=== PATIENT | male | born 1960 | race Caucasian/White ===

== ENCOUNTER 2021-06-13 10:48 | Inpatient (IN) | payer BC ==
[~2021-06-13] VITALS: Ht 182.9 cm; Wt 126.8 kg
[2021-06-13 11:15] LABS: HEMATOCRIT 46.2 % (42.0-52.0); HEMOGLOBIN 15.1 gm/dL (14.0-18.0); MCH 30.7 pg (26.0-34.0); MCHC 32.6 g/dL (28.0-37.0); MCV 94.1 fL (80.0-100.0); MPV 8.6 fl. (7.2-11.1); NUCLEATED RBCS 0 /100WBC; PLATELET COUNT* 207 thou/uL (150-400); RBC 4.91 mil/uL (4.50-6.00); RDW-CV 14.3 % (10.5-14.5); WBC 11.2 thou/uL (4.0-11.0)
[2021-06-13 11:17] VITALS: BP 108/87
[2021-06-13 11:24] LABS: CALCIUM 8.2 mg/dL (8.5-10.1); CREATININE 1.4 mg/dL (0.6-1.3)
[2021-06-13 11:28] LABS: POTASSIUM 5.5 mmol/L (3.5-5.1)
[2021-06-13] MEDS ORDERED: PLAVIX 75 MG TA75 MG PO (11:30)
[2021-06-13 11:35] LABS: ALBUMIN 4.2 g/dL (3.4-5.0); TOTAL BILIRUBIN 0.3 mg/dL (<0.1-1.0); TOTAL PROTEIN 8.2 g/dL (6.4-8.2)
[2021-06-13 11:42] LABS: ABSOLUTE MONOCYTES 0.4 thou/uL (0.0-1.2); ABSOLUTE NEUTROPHILS 9.7 thou/uL (1.6-8.1); PLATELET ESTIMATE ADEQUATE
[2021-06-13] MEDS ORDERED: LOPRESSOR50 MG PO (11:44)
[2021-06-13 11:45] LABS: ALCOHOL < 10 mg/dL (<10); SALICYLATE 4.6 mg/dL (2.8-20.0)
[2021-06-13] MEDS ORDERED: NORCO 10-325 T1 EACH PO (11:45)
[2021-06-13] MEDS ORDERED: ASPIRIN325 PO (11:45)
[2021-06-13] MEDS ORDERED: SOMA350 MG PO (11:46)
[2021-06-13] MEDS ORDERED: AMITRIPTYLINE150 MG PO (11:46)
[2021-06-13] MEDS ORDERED: SONATA5 M1 PO (11:46)
[2021-06-13] MEDS ORDERED: MELATONIN3 M1 PO (11:47)
[2021-06-13] MEDS ORDERED: NEURONTIN 300M300 M2 PO (11:47)
[2021-06-13] MEDS ORDERED: MICARDIS HCT 41 EACH PO (11:47)
[2021-06-13 11:49] LABS: ACETAMINOPHEN < 2 ug/mL (10-30)
[2021-06-13 12:51] LABS: URINE BILIRUBIN NEGATIVE (Negative); URINE BLOOD NEGATIVE (Negative); URINE CLARITY CLEAR; URINE COLOR YELLOW; URINE GLUCOSE-RANDOM TRACE (Negative); URINE KETONES NEGATIVE (Negative); URINE LEUKOCYTES-REFLEX NEGATIVE (Negative); URINE NITRITE-REFLEX NEGATIVE (Negative); URINE PROTEIN NEGATIVE (Negative); URINE SPECIFIC GRAVITY >= 1.030 (1.005-1.030); URINE UROBILINOGEN 0.2 E.U./dl (0.2-1.0)
[2021-06-13 12:59] LABS: AMP/METHAMP Negative (Negative); BARBITURATES Negative (Negative); BENZODIAZEPINES Negative (Negative); COCAINE Negative (Negative); METHADONE POSITIVE (Negative); OPIATES POSITIVE (Negative); PCP Negative (Negative); THC POSITIVE (Negative)
[2021-06-13 17:00] VITALS: BP 108/84
[2021-06-13 17:09] LABS: PO2 77.2 mmHg (75.0-100.0)
[2021-06-13 17:11] LABS: pH 7.205 (7.340-7.450)
[2021-06-13 17:12] LABS: PCO2 65.8 mmHg (35.0-45.0)
--- NOTE | 2021-06-13 17:40 | 2DMMODE ---
[place] [address] 2 D/M-MODE ECHOCARDIOGRAM Name: BETTY ORTIZ Room: [place] [address] ADM IN .R.#: [id number] Admission: 06/13/21 Attend Phys: Hanane Perry, Discharge: Date of : 62 Date of Service: 06/13/21 1739 Report #: [id number] THIS REPORT FOR: cc: Physician not on staff Physician not on staff Roshan aSnchez MD [facility] ~ APPROVED REPORT Study performed: 06/13/2021 15:29:16 EXAM: Comprehensive 2D, Doppler, and color-flow Echocardiogram Patient Location: In-Patient Room #: er Status: routine BSA: 2.46 HR: 82 bpm BP: 113/78 mmHg Rhythm: NSR Other Information Study Quality: Good Indications elevated bnp 2D Dimensions IVSd: 17.21 (7-11mm) LVOT Diam: 22.76 (18-24mm) LVDd: 53.62 mm PWd: 13.05 (7-11mm) Ascending Ao: 40.79 (22-36mm) LVDs: 33.00 (25-40mm) Aortic Root: 38.37 mm Volumes Left Atrial Volume (Systole) LA ESV Index: 16.70 mL/m2 Aortic Valve AoV Peak Erick.: 1.28 m/s AO Peak Gr.: 6.59 mmHg LVOT Max P.47 mmHg AO Mean Gr.: 4.06 mmHg LVOT Mean P.71 mmHg LVOT Max V: 0.93 m/s AO V2 VTI: 22.09 cm LVOT Mean V: 0.60 m/s ARTURO (VTI): 3.08 cm2 LVOT V1 VTI: 16.75 [place] [address] 2 D/M-MODE ECHOCARDIOGRAM Name: BETTY ORTIZ Room: [place] [address] ADM IN M.R.#: [id number] Admission: 06/13/21 Attend Phys: Hanane Perry, Discharge: Date of : 62 Date of Service: 06/13/21 7509 Report #: [id number] Mitral Valve E/A Ratio: 1.26 MV Decel. Time: 217.55 ms MV E Max Erick.: 0.73 m/s MV PHT: 63.09 ms MVA (PHT): 3.49 cm2 TDI E/Lateral E': 6.08 E/Medial E': 6.08 Medial E' Erick.: 0.12 m/s Lateral E' Erick.: 0.12 m/s Pulmonary Valve PV Peak Erick.: 0.75 m/s PV Peak Gr.: 2.22 mmHg Left Ventricle The left ventricle is normal size. There is normal LV segmental wall motion. Mild to moderate concentric left ventricular hypertrophy. Left ventricular systolic function is normal. The left ventricular ejection fraction is within the normal range. LVEF is 55-60%. The left ventricular diastolic function is normal. Right Ventricle The right ventricle is normal size. The right ventricular systolic function is normal. Atria The left atrium size is normal. The right atrium size is normal. Aortic Valve The aortic valve is normal in structure. No aortic regurgitation is present. There is no aortic valvular stenosis. Mitral Valve The mitral valve is normal in structure. There is no mitral valve regurgitation noted. No evidence of mitral valve stenosis. Tricuspid Valve The tricuspid valve is normal in structure. There is trace tricuspid valve regurgitation noted. Pulmonic Valve The pulmonary valve is normal in structure. There is no [place]mon[place] [address] 2 D/M-MODE ECHOCARDIOGRAM Name: BETTY ORTIZ Room: [address] IN [facility]#: [id number] Admission: 06/13/21 Attend Phys: Hanane Perry, Discharge: Date of : 62 Date of Service: 06/13/21 1739 Report #: [id number] Great Vessels Aortic root is mildly dilated. IVC is normal in size and collapses >50% with inspiration. Pericardium There is no pericardial effusion. <Conclusion> Mild to moderate concentric left ventricular hypertrophy. LVEF is 55-60%. <ELECTRONICALLY SIGNED> By: Roshan Sanchez MD, FACC 06/13/21 [id number] Roshan Sanchez MD, FAC /INF
--- NOTE | 2021-06-13 17:43 | EKG ---
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 : 1960 Requested By: Terry Zhao Order Number: [id number] MD: Roshan Sanchez Measurements Intervals [place] Rate: 95 P: 51 WV: 195 QRS: -60 QRSD: 96 T: 88 QT: 349 QTc: 439 Interpretive Statements Sinus rhythm Left anterior fascicular block Abnormal R-wave progression, early transition No previous ECG available for comparison Electronically Signed On 06-13-2021 17:43:21 CDT by Roshan Sanchez [email or web address] <ELECTRONICALLY SIGNED> By: Roshan Sanchez MD, FAC 06/13/21 1743 1111 1111 Roshan Sanchez MD, [facility] /EPI
[2021-06-13 20:29] LABS: BE -4.3 mmol/L (-2 to +3); PO2 99.9 mmHg (75.0-100.0)
[2021-06-13 20:32] LABS: pH 7.212 (7.340-7.450)
[2021-06-13 20:43] VITALS: BP 108/84
[2021-06-13 20:55] VITALS: BP 143/100
[2021-06-14 01:18] LABS: BE -1.3 mmol/L (-2 to +3); PO2 121.9 mmHg (75.0-100.0); pH 7.303 (7.340-7.450)
[2021-06-14 01:19] LABS: PCO2 53.6 mmHg (35.0-45.0)
[2021-06-14 04:33] VITALS: BP 126/96
[2021-06-14 05:05] LABS: HEMATOCRIT 38.8 % (42.0-52.0); MCH 31.3 pg (26.0-34.0); MCHC 33.8 g/dL (28.0-37.0); MCV 92.5 fL (80.0-100.0); MPV 8.9 fl. (7.2-11.1); RBC 4.19 mil/uL (4.50-6.00); RDW-CV 13.9 % (10.5-14.5); WBC 4.6 thou/uL (4.0-11.0)
[2021-06-14 05:08] LABS: ALBUMIN 3.3 g/dL (3.4-5.0); CALCIUM 7.8 mg/dL (8.5-10.1); CREATININE 0.8 mg/dL (0.6-1.3); MAGNESIUM 2.2 mg/dL (1.8-2.4); POTASSIUM 4.9 mmol/L (3.5-5.1); TOTAL BILIRUBIN 0.2 mg/dL (<0.1-1.0); TOTAL PROTEIN 6.8 g/dL (6.4-8.2)
[2021-06-14 05:31] LABS: HEMOGLOBIN 13.1 gm/dL (14.0-18.0)
[2021-06-14 07:08] LABS: GLYCOHEMOGLOBIN (HGB A1C) 5.6 % (4.8-5.6)
--- NOTE | 2021-06-14 07:20 | NUR ---
CHANGE OF SHIFT BEDSIDE REPORT GIVEN PATIENT SEEN AT BEDSIDE, IN BED ASLEPP ON BIPAP ASSUMED PATIENT CAR
[2021-06-14 08:00] VITALS: BP 144/107
--- NOTE | 2021-06-14 11:35 | EKG ---
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 Operations: THOWARD3 : 1960 Requested By: Hanane Perry Order Number: [id number] Reading MD: Matthieu Calabrese Measurements Intervals [place] Rate: 89 P: 43 VA: 184 QRS: -49 QRSD: 102 T: 86 QT: 358 QTc: 436 Interpretive Statements Sinus rhythm Incomplete RBBB and LAFB Abnormal R-wave progression, early transition Compared to ECG 06/13/2021 11:11:23 Incomplete right bundle-branch block now present Right bundle-branch block now present Electronically Signed On 06-14-2021 11:35:17 CDT by Matthieu Calabrese [email or web address] <ELECTRONICALLY SIGNED> By: Snehal Calabrese MD, [facility] 06/14/21 1135 43 43 Snehal Calabrese MD, [facility] /EPI
--- NOTE | 2021-06-14 11:37 | EKG ---
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 : 1960 Requested By: Snehal Calabrese Order Number: [id number] Reading MD: Matthieu Calabrese Measurements Intervals [place] Rate: 75 P: 30 NE: 177 QRS: -36 QRSD: 102 T: 62 QT: 397 QTc: 444 Interpretive Statements Sinus rhythm Left axis deviation Abnormal R-wave progression, early transition Compared to ECG 06/13/2021 21:44:43 Left-axis deviation now present Left anterior fascicular block no longer present Incomplete right bundle-branch block no longer present Right bundle-branch block no longer present Electronically Signed On 06-14-2021 11:37:26 CDT by Matthieu Calabrese [email or web address] <ELECTRONICALLY SIGNED> By: Snehal Calabrese MD, [facility] 06/14/21 1137 0636 0636 Snehal Calabrese MD, [facility] /EPI
[2021-06-14 11:53] VITALS: BP 133/91
[2021-06-14 20:00] VITALS: BP 123/80
[2021-06-15] VITALS: BP 119/84
[2021-06-15 04:00] VITALS: BP 143/96
[2021-06-15 05:09] LABS: CALCIUM 8.3 mg/dL (8.5-10.1); CREATININE 0.8 mg/dL (0.6-1.3); HEMATOCRIT 37.9 % (42.0-52.0); HEMOGLOBIN 12.8 gm/dL (14.0-18.0); MCH 31.2 pg (26.0-34.0); MCHC 33.9 g/dL (28.0-37.0); MCV 91.9 fL (80.0-100.0); MPV 9.4 fl. (7.2-11.1); POTASSIUM 4.3 mmol/L (3.5-5.1); RBC 4.12 mil/uL (4.50-6.00); RDW-CV 13.7 % (10.5-14.5); WBC 6.3 thou/uL (4.0-11.0)
--- NOTE | 2021-06-15 07:05 | NUR ---
CHANGE OF SHIFT BEDSIDE REPORT GIVEN PATIENT SEEN AT BEDSIDE, IN BED RESTING ASSUMED PATIENT CARE
--- NOTE | 2021-06-15 07:30 | NUR ---
Oriented x 4 but drowsy. Vitals are stable. This am RT took him off his O2 and at 0715 I checked him and he was 95-97% on roomair. SR on the monitor he has slept well.
[2021-06-15 08:00] VITALS: BP 153/100
--- NOTE | 2021-06-15 10:42 | CON ---
[address] [address] CONSULTATION Name: BETTY ORTIZ Room: [address] ADM IN M.R.#: [id number] Admission: 06/13/21 Attend Phys: Hanane Perry MD Discharge: Date of : 62 Report #: [id number] THIS REPORT FOR: cc: Physician not on staff Physician not on staff Snehal Calabrese MD [facility] ~ DATE OF CONSULTATION: 06/13/2021 CARDIOLOGY CONSULTATION HISTORY OF PRESENT ILLNESS: I was asked by Dr. Hanane Perry to see this 61-year-old white male in Cardiology consultation for evaluation and treatment of an elevated troponin. This man does have a history of coronary artery disease and previous myocardial infarction as well as previous coronary stents. He was seen by EMS after his mother found him unresponsive. He was felt to have had a drug overdose. There is apparently a history of drug use. He got 2 mg of Narcan intranasally 2 mg IV and awakened. He was brought to the Emergency Room. He was evaluated and felt to have had a drug overdose, although he also probably has pneumonia. He may have aspiration pneumonia. His chest x-ray shows mild bilateral lower lobe atelectasis or infiltrate, greater on the right than the left. He was in acute respiratory failure even though he had gotten Narcan. His initial pH was 7.2 with a pCO2 of 66 and a pO2 of 77.2. Bicarbonate was 25, that was on I believe 4 liters of oxygen. Ultimately, he required BiPAP. This morning, I could not get a lot of history from him as he was mildly somnolent and on BiPAP. His EKG initially showed normal sinus rhythm. There is incomplete right bundle branch block and left anterior fascicular block. There is abnormal early R-wave progression. A subsequent EKG done this morning, really just shows left axis deviation. There is early transition present, however. His troponins were initially negative x 2. He did not have chest pain according to him. Subsequent troponin; however, the third one of the sets 6 hours after the initial one was 0.33 and then another 4 hours later was 0.46 and another 2 hours after that was 0.57 and another 2 hours after that was 0.79. His NT-proBNP was 410. Again, this man denied any chest pain. He did have some shortness of breath, he said. He did not have any edema. He had a urine drug screen that was positive for methadone and for opiates and for marijuana. PAST MEDICAL HISTORY: As described above. Essential hypertension. HOME MEDICATIONS: Include Plavix 75 mg daily, metoprolol tartrate 100 mg daily, aspirin 325 mg daily, [place] p.r.n., Soma 350 mg at bedtime, Sonata 5 mg at bedtime, amitriptyline 150 mg at bedtime and gabapentin 300 mg t.i.d. as well as telmisartan and hydrochlorothiazide 40/12.5 daily, takes melatonin 3 mg [place] [address] CONSULTATION Name: BETTY ORTIZ Room: [address] IN [facility].#: [id number] Admission: 06/13/21 Attend Phys: Hanane Perry MD Discharge: Date of : 62 Report #: [id number] ALLERGIES: HE IS ALLERGIC TO CODEINE, MERCAPTOPURINE AND SULFA. REVIEW OF SYSTEMS: Unobtainable today as well as his family history. He was fairly somnolent. SOCIAL HISTORY: Unobtainable. PHYSICAL EXAMINATION: GENERAL: He presents as a well-developed, well-nourished white male in no acute distress. VITAL SIGNS: Pulse was 77 and regular. Blood pressure is 126/96, respirations 18 and regular, temperature is 97 degrees. HEENT: Atraumatic. Eyes clear. NECK: Supple. There is no jugular venous distention or hepatojugular reflux. Thyroid is not enlarged. There is no adenopathy. SKIN: Warm and dry. Mucous membranes are moist. LUNGS: Clear to auscultation and percussion. HEART: Revealed normal first and second heart tones. There is a soft S4. There is no S3. There are no murmurs, rubs, thrills, heaves or gallops. PMI is nondisplaced. ABDOMEN: Soft, flat, nontender. No palpable masses, no organomegaly. EXTREMITIES: Reveal no cyanosis, clubbing or edema. NEUROLOGIC: The patient did not mentate normally. He was somewhat somnolent. He did not talk normally because of the BiPAP, but he did move all extremities normally. IMPRESSION: 1. Elevated troponin that represents a type 2 event that is a troponin elevation related secondary to severe illness and not a true type 1 myocardial infarction. 2. Coronary artery disease. 3. Status post myocardial infarction in the past. 4. Status post coronary stents in the past. 5. Drug overdose with opiates. 6. Polydrug use. 7. Pneumonia, bilateral in the bases and possibly aspiration. 8. Acute respiratory failure. 9. Essential hypertension. RECOMMENDATION: I would simply observe him from the Cardiology point of view at this point. At some point, he will need an echo and a stress test, but not until he is quite well. The echo certainly can be obtained on Wednesday, but the stress test is not until he is completely [place] [address] CONSULTATION Name: BETTY ORTIZ Room: [address] ADM IN M.R.#: [id number] Admission: 06/13/21 Attend Phys: Hanane Perry MD Discharge: Date of : 62 Report #: [id number] Thank you very much for asking me to see this patient. If any questions, please feel free to contact me. <ELECTRONICALLY SIGNED> By: Snehal Calabrese MD, FACC 06/15/21 1042 [id number]. Matthieu Calabrese MD, FACC /nt
[2021-06-15 11:08] VITALS: BP 153/100
--- NOTE | 2021-06-15 11:30 | NUR ---
PATIENT DISCHARGED TO HOME DC INSTRUCTIONS GIVEN AND PAPERWORK GIVEN IV AND HEART MONITOR REMOVED PERSONAL BELONGINGS RETURNED PATIENT ASSISTED OUT VIA WC GOOD CONDITION TO WAITING CAR
== END 2021-06-15 11:30 | disposition home or self-care (01) | DRG 917 ==
LOC: M.ERS 10:48 → M.TBA-ER 12:59 → M.2W 20:52
PROVIDERS: Emergency Medicine Emergency Medical Services; Family Medicine; ADMIT Internal Medicine; ATTEND Internal Medicine
PROC: 5A09357 Assistance with Respiratory Ventilation, Less than 24 Consecutive Hours, Continuous Positive Airway Pressure (ICD-10-PCS; principal; 2021-06-13)
PROC: 5A0935A Assistance with Respiratory Ventilation, Less than 24 Consecutive Hours, High Flow/Velocity Cannula (ICD-10-PCS; 2021-06-14)
PROC: 5A0935A Assistance with Respiratory Ventilation, Less than 24 Consecutive Hours, High Flow/Velocity Cannula (ICD-10-PCS; 2021-06-15)
DX: T40.2X1A Poisoning by other opioids, accidental (unintentional), initial encounter (principal); J96.21 Acute and chronic respiratory failure with hypoxia; T40.3X1A Poisoning by methadone, accidental (unintentional), initial encounter; I10 Essential (primary) hypertension; G89.29 Other chronic pain; M54.9 Dorsalgia, unspecified; I25.10 Atherosclerotic heart disease of native coronary artery without angina pectoris; F17.210 Nicotine dependence, cigarettes, uncomplicated; T40.7X1A Poisoning by cannabis (derivatives), accidental (unintentional), initial encounter; G47.33 Obstructive sleep apnea (adult) (pediatric); Z20.822 Contact with and (suspected) exposure to COVID-19; Z96.659 Presence of unspecified artificial knee joint; Z79.899 Other long term (current) drug therapy; Z79.82 Long term (current) use of aspirin; Z88.2 Allergy status to sulfonamides; Z91.19 Patient's noncompliance with other medical treatment and regimen; Z79.01 Long term (current) use of anticoagulants; Z88.8 Allergy status to other drugs, medicaments and biological substances; Z95.5 Presence of coronary angioplasty implant and graft; Y92.89 Other specified places as the place of occurrence of the external cause